=== PATIENT | male | born 1970 | race African-American/Black ===

== ENCOUNTER 2025-10-12 17:44 | Emergency (ER) | payer MEDICARE, SELFPAY ==
[2025-10-12] MEDS ORDERED: Ketorolac Tromethamine 30 MG (1 mL) VIAL ONE (18:42)
== END 2025-10-12 18:48 | disposition home or self-care (01) ==
LOC: CSHERS 17:44
DX: S83.92XA Sprain of unspecified site of left knee, initial encounter (principal); M25.462 Effusion, left knee; I10 Essential (primary) hypertension; F17.210 Nicotine dependence, cigarettes, uncomplicated; W20.8XXA Other cause of strike by thrown, projected or falling object, initial encounter
CPT/HCPCS: 73564; J1885; 96372; 99283